=== PATIENT | male | born 1980 | race Caucasian/White ===

== ENCOUNTER 2021-12-03 10:46 | Outpatient (CLI) | payer OTHER, SELFPAY ==
--- NOTE | ~2021-12-03 | XR_ITS ---
EXAMINATION: XR toe 1st RT min 2V DATE: 12/03/2021 11:09 INDICATION: Right great toe pain. TECHNIQUE: 4 views of right great toe were obtained. COMPARISON: None. FINDINGS: Bone alignment is normal. No fracture. 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 IMPRESSION: 1. Polyarticular osteoarthritis. Reviewed, dictated and finalized at location A.
== END 2021-12-03 10:47 | disposition home or self-care (01) ==
PROVIDERS: PCP Family Medicine; Visit Provider Physician Assistant
DX: M79.676 Pain in unspecified toe(s) (principal); M19.071 Primary osteoarthritis, right ankle and foot
CPT/HCPCS: 73660

== ENCOUNTER 2022-09-09 10:57 | Outpatient (CLI) | payer OTHER, SELFPAY ==
--- NOTE | ~2022-09-09 | XR_ITS ---
AP, oblique, and lateral views of the right second toe CLINICAL HISTORY: Pain FINDINGS: No fracture or dislocation seen. There is severe degenerative change of the first metatarso phalangeal joint. Remaining visualized joint spaces are intact. Soft tissues are unremarkable. IMPRESSION: No acute fracture or dislocation seen. Severe degenerative change of the first metatarsophalangeal joint. Reviewed, dictated and finalized at location .
== END 2022-09-09 10:58 | disposition home or self-care (01) ==
PROVIDERS: PCP Family Medicine; Visit Provider Family Medicine
DX: M19.071 Primary osteoarthritis, right ankle and foot (principal)
CPT/HCPCS: 73660

== ENCOUNTER 2022-10-06 13:42 | Outpatient (CLI) | payer OTHER, SELFPAY ==
--- NOTE | ~2022-10-06 | XR_ITS ---
EXAMINATION: XR foot RT min 3V DATE: 10/06/2022 14:14 INDICATION: Right second toe pain. TECHNIQUE: 4 views of right foot were obtained. COMPARISON: Right second toe radiographs 09/09/2022 FINDINGS: Bone alignment is normal. No fracture. 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 IMPRESSION: 1. Polyarticular osteoarthritis. Reviewed, dictated and finalized at location E.
== END 2022-10-06 13:43 | disposition home or self-care (01) ==
PROVIDERS: PCP Family Medicine; Visit Provider Family Medicine
DX: M19.071 Primary osteoarthritis, right ankle and foot (principal)
CPT/HCPCS: 73630